=== PATIENT | male | born 1990 | race Caucasian/White ===

== ENCOUNTER 2020-08-29 10:24 | Emergency (ER) | payer MEDICAID ==
[~2020-08-29] VITALS: Ht 167.6 cm; Wt 73.0 kg
[2020-08-29] MEDS ORDERED: LORAZEPAM 2MG/ML CPJ IV ONE (10:45)
[2020-08-29 11:13] LABS: HEMOGLOBIN. 14.1 g/dL (14.0-18.0); MEAN CORPUSCULAR HEMOGLOBIN 30.2 pg (28.0-32.0); MEAN CORPUSCULAR VOLUME 90.3 fL (80.0-94.0); MEAN PLATELET VOLUME 7.6 fl (7.4-10.4); PLATELET 275 x1000/uL (130-400); RED BLOOD CELL COUNT 4.66 mill/uL (4.7-6.1); RED CELL DISTRIBUTION WIDTH 14.5 % (11.6-14.6)
[2020-08-29 11:42] LABS: PLATELET ESTIMATE NORMAL
[2020-08-29 12:05] LABS: CHLORIDE 108 mEq/L (98-107)
[2020-08-29 12:09] LABS: ETHANOL BLOOD < 10 mg/dL
[2020-08-29] MEDS ORDERED: SODIUM CHLORIDE 0.9% 1,000 ML IV ONE (13:30)
[2020-08-29 14:17] LABS: CLARITY URINE CLOUDY (CLEAR); COLOR URINE YELLOW (YELLOW); KETONES URINE NEGATIVE (NEGATIVE); LEUKOCYTE ESTERASE URINE NEGATIVE (NEGATIVE); NITRITE URINE NEGATIVE (NEGATIVE); OCCULT BLOOD URINE NEGATIVE (NEGATIVE); PH URINE 7.5 (4.5-8.0); PROTEIN URINE NEGATIVE (NEGATIVE); SPECIFIC GRAVITY URINE 1.026 (1.005-1.030); UROBILINOGEN URINE 0.2 E.U./dL (0.2-1.0)
[2020-08-29 14:30] LABS: *AMPHETAMINES SCREEN URINE NEGATIVE (NEGATIVE); *BARBITURATES SCREEN URINE NEGATIVE (NEGATIVE); *BENZODIAZEPINES SCREEN URINE NEGATIVE (NEGATIVE); *COCAINE SCREEN URINE NEGATIVE (NEGATIVE)
[2020-08-29 14:37] LABS: CANNABINOID URINE SCREEN PRESUMTIVE POSITIVE (NEGATIVE); METHADONE URINE SCREEN NEGATIVE (NEGATIVE); OPIATES URINE SCREEN NEGATIVE (NEGATIVE); PHENCYCLIDINE URINE SCREEN NEGATIVE (NEGATIVE)
[2020-08-29 17:00] LABS: ETHANOL BLOOD < 10 mg/dL
[2020-08-29 17:04] LABS: CREATINE KINASE 564 IU/L (39-308)
[2020-08-29] MEDS ORDERED: GUAIFENESIN 200MG/10ML SUGAR FREE UDC PO PRN (20:00)
[2020-08-29] MEDS ORDERED: ONDANSETRON HCL 4MG/2ML INJ IV PRN (20:00)
[2020-08-29] MEDS: SODIUM CHLORIDE 0.45% 1,000 ML IV SCH (21:16)
[2020-08-30] MEDS: SODIUM CHLORIDE 0.45% 1,000 ML IV SCH ×2 (09:20→23:25)
[2020-08-31 04:37] LABS: CHLORIDE 106 mEq/L (98-107)
[2020-08-31 04:39] LABS: EOSINOPHILS % 4.2 % (0.0-5.0); HEMATOCRIT. 42.7 % (42.0-52.0); HEMOGLOBIN. 14.3 g/dL (14.0-18.0); LYMPHOCYTES % 27.4 % (20.0-50.0); MEAN CORPUSCULAR HEMOGLOBIN 30.6 pg (28.0-32.0); MEAN CORPUSCULAR VOLUME 91.5 fL (80.0-94.0); MONOCYTES % 7.5 % (2.0-8.0); NEUTROPHILS % 59.9 % (40.0-76.0); PLATELET 254 x1000/uL (130-400); RED BLOOD CELL COUNT 4.67 mill/uL (4.7-6.1); RED CELL DISTRIBUTION WIDTH 14.1 % (11.6-14.6)
[2020-08-31 04:44] LABS: LDL CHOLESTEROL 90 mg/dL (5-100)
[2020-08-31 04:46] LABS: HDL CHOLESTEROL 74 mg/dL (40-59)
[2020-08-31 11:10] VITALS: BP 94/54
== END 2020-08-31 11:46 | disposition home or self-care (01) ==
LOC: ER 10:39 → ENRESERV 18:25 → CANRESERV 18:25 → EDBEDREQSVC 08-30 07:26 → CANBEDREQ 08-31 06:41 → ER 08-31 11:46
DX: R45.851 Suicidal ideations (principal); F20.2 Catatonic schizophrenia; Z59.0 Homelessness; F12.90 Cannabis use, unspecified, uncomplicated; R94.6 Abnormal results of thyroid function studies; R74.8 Abnormal levels of other serum enzymes; R73.9 Hyperglycemia, unspecified
CPT/HCPCS: 36415; 70450; 71045; 80053; 80061; 80305; 80307; 80320; 80329; 81003; 82140; 82550; 83605; 84439; 84443; 84481; 84484; 85025; 93005; 96361; 96374; 99285; J2060; J7030; Z7610; G0480

== ENCOUNTER 2020-08-31 12:27 | Emergency (ER) | payer MEDICAID ==
[~2020-08-31] VITALS: Ht 175.3 cm; Wt 72.0 kg
[2020-08-31] MEDS ORDERED: LORAZEPAM 0.5MG TABLET PO ONE (19:00)
[2020-08-31 19:09] LABS: CLARITY URINE CLEAR (CLEAR); COLOR URINE YELLOW (YELLOW); KETONES URINE NEGATIVE (NEGATIVE); LEUKOCYTE ESTERASE URINE NEGATIVE (NEGATIVE); NITRITE URINE NEGATIVE (NEGATIVE); OCCULT BLOOD URINE NEGATIVE (NEGATIVE); PH URINE 6.5 (4.5-8.0); PROTEIN URINE NEGATIVE (NEGATIVE); SPECIFIC GRAVITY URINE 1.019 (1.005-1.030); UROBILINOGEN URINE 0.2 E.U./dL (0.2-1.0)
[2020-08-31 19:24] LABS: *AMPHETAMINES SCREEN URINE NEGATIVE (NEGATIVE); *BARBITURATES SCREEN URINE NEGATIVE (NEGATIVE); *BENZODIAZEPINES SCREEN URINE NEGATIVE (NEGATIVE); *COCAINE SCREEN URINE NEGATIVE (NEGATIVE); METHADONE URINE SCREEN NEGATIVE (NEGATIVE); OPIATES URINE SCREEN NEGATIVE (NEGATIVE); PHENCYCLIDINE URINE SCREEN NEGATIVE (NEGATIVE)
[2020-08-31 19:25] LABS: CANNABINOID URINE SCREEN PRESUMTIVE POSITIVE (NEGATIVE)
[2020-09-01 11:10] VITALS: BP 110/73
== END 2020-09-01 11:15 | disposition home or self-care (01) ==
LOC: ER 12:27
DX: R45.851 Suicidal ideations (principal); F31.9 Bipolar disorder, unspecified; F20.9 Schizophrenia, unspecified; F12.10 Cannabis abuse, uncomplicated; Z20.822 Contact with and (suspected) exposure to COVID-19
CPT/HCPCS: 80305; 81003; 87426; 99285; Z7610

== ENCOUNTER 2020-09-01 12:34 | Emergency (ER) | payer MEDICAID ==
[~2020-09-01] VITALS: Ht 175.3 cm; Wt 68.0 kg
[2020-09-01 12:47] VITALS: BP 109/76
== END 2020-09-01 14:25 | disposition home or self-care (01) ==
LOC: ER 12:34
DX: R45.851 Suicidal ideations (principal); Z86.59 Personal history of other mental and behavioral disorders; Z98.890 Other specified postprocedural states
CPT/HCPCS: 99281